=== PATIENT | female | born 1960 | race Caucasian/White ===

== ENCOUNTER → 2024-01-08 08:46 | Outpatient (REF) | payer BC, SELFPAY | LOC: WDC 08:46 | PROVIDERS: ATTENDING PHYSICIAN Nurse Practitioner | DX: Z12.39 Encounter for other screening for malignant neoplasm of breast (principal); Z12.31 Encounter for screening mammogram for malignant neoplasm of breast | CPT/HCPCS: 77063; 77067 ==

== ENCOUNTER → 2025-01-10 14:05 | Outpatient (REF) | payer BC, SELFPAY | LOC: WDC 14:05 | PROVIDERS: ATTENDING PHYSICIAN Nurse Practitioner | DX: Z12.39 Encounter for other screening for malignant neoplasm of breast (principal) | CPT/HCPCS: 77063; 77067 ==